=== PATIENT | female | born 1995 | race African-American/Black ===

== ENCOUNTER 2018-04-18 10:39 | Emergency (ER) | payer BC ==
[~2018-04-18] VITALS: Ht 165.1 cm; Wt 63.0 kg
[2018-04-18 10:44] VITALS: Ht 165.1 cm; Wt 63.0 kg
[2018-04-18 13:45] VITALS: BP 124/75
== END 2018-04-18 14:00 | disposition home or self-care (01) ==
LOC: ED 10:39
DX: R09.1 Pleurisy (principal); R06.02 Shortness of breath
CPT/HCPCS: 85378; Q9967